=== PATIENT | female | born 1955 | race African-American/Black ===

== ENCOUNTER 2019-01-19 05:54 | Day surgery (SDC) | payer MEDICARE ==
[~2019-01-19] VITALS: Ht 157.6 cm; Wt 67.6 kg
[2019-01-19] VITALS (285 sets, daily range): BP systolic 105–133; BP diastolic 37–75; PULSE 62–80; TEMP 97.5–98.6; O2SAT 88–100
[~2019-01-19 05:54] MED LIST: ASPIRIN E.C. 8181 MG PO; BRILINTA90 MG PO; CATAPRES0.3 MG PO; GLUCOPHAGE500 MG/TAB PO; LIPITOR 80MG80 MG PO; MOTRIN 600600 MG/TAB PO; NITRO-DUR0.4 MG/PAT TD; NITROSTAT0.4 MG/TAB SL; NORVASC 5MG5 MG/TAB PO; PRINZIDE 25 MG-1 TAB PO; SYNTHROID0.112 MG/T PO; TOPROL XL 50MG50 MG PO; TOPROL XL100 MG PO; TYLENOL 500MG500 MG PO; TYLENOL PM EXTR1 TA1 PO
[2019-01-19 07:25] LABS: MEAN CELL VOLUME 90 fl (80.0-100.0); MEAN CORPUSCULAR HGB CONC 30 g/dl (33.0-37.0); MEAN PLATELET VOLUME 10.4 fl (7.4-10.4); PLATELET COUNT 262 K/mm3 (130-400); RED BLOOD COUNT 3.07 M/mm3 (4.10-5.30); REDCELL DISTRIBUTION WIDTH-CV 14.6 % (11.5-14.5)
[2019-01-19] MEDS ORDERED: PLAVIX 75MG TAB75 MG PO (07:32)
[2019-01-19 07:35] LABS: HEMATOCRIT 27.6 % (37.0-47.0); HEMOGLOBIN 8.3 g/dl (12.5-16.0); MEAN CORPUSCULAR HEMOGLOBIN 27 pg (27.0-31.0)
[2019-01-19 07:38] LABS: CALCIUM 9.2 mg/dL (8.4-10.2); CREATININE, serum 1.26 (0.52-1.25); POTASSIUM 4.2 mmol/L (3.4-5.0)
[2019-01-19] MEDS ORDERED: HCTZ 25MG TAB25 MG PO (07:42)
[2019-01-19] MEDS ORDERED: LIPITOR 40MG TA40 MG PO (07:44)
[2019-01-19] MEDS ORDERED: GLUCOPHAGE500 MG/TAB PO (07:45)
[2019-01-19] MEDS ORDERED: SYNTHROID0.112 MG/T PO (07:46)
[2019-01-19] MEDS ORDERED: NORVASC 5MG5 MG/TAB PO (07:51)
[2019-01-19] MEDS ORDERED: LOPRESSOR100 MG PO (07:52)
[2019-01-19 07:54] LABS: PROTHROMBIN TIME 12.1 SECONDS (9.7-12.8)
--- NOTE | 2019-01-19 07:57 | NUR ---
SEE MERGE DOCUMENTATION FOR MEDICATION ADMINISTRATION TIMES AND INTRA/POST PROCEDURE SEDATION ASSESSMENTS. BILATERAL DP PULSES LOCATED WITH DOPPLER, SITES MARKED.
--- NOTE | 2019-01-19 09:45 | NUR ---
Pt arrived in unit from label maker post procedure. After Pt was assisted onto bed navarro after arrival, Pt began to have significant oozing from R femoral cath site. cork slabs sawyer staff now applying manual pressure. Will continue to monitor.
--- NOTE | 2019-01-19 10:00 | NUR ---
Pt still oozing from site. No hematoma present. sleep lab technician staff still applying manual pressure.
--- NOTE | 2019-01-19 10:10 | NUR ---
report received pt to transfer to ICu post procedure.
--- NOTE | 2019-01-19 10:15 | NUR ---
Femstop placed by laborer steel handling staff at this time per direction of Dr. Forman. No hematoma present. Femstop to remain in place for one hour, then reassess bleeding.
--- NOTE | 2019-01-19 10:20 | NUR ---
Pt transferred to ICU rm 2. Bedside handoff with DEBBIE Wolfe. Right groin site with Safeguard at 35 mL. Oozing noted from site. Safeguard removed at this time. Slow tract oozing noted; manual pressure held x 15 min with continued slow oozing noted from site. Dr Forman notified, order received to apply Femostop x1 hr. Orders relayed to DEBBIE Wolfe. Femostop applied at 70 mmHg. BP 131/66. No continued oozing noted. DP pulse checked with doppler post-application of Femostop and found present. Pt A&O, denies pain to groin/flank or sensation changes to distal leg/foot. VS's stable at this time.
--- NOTE | 2019-01-19 10:30 | NUR ---
Femstop dressing still in place with compression at 60 mmHg. No hematoma noted. Purewick external catheter placed at this time. Will continue to monitor.
--- NOTE | 2019-01-19 11:00 | NUR ---
Femstop dressing with compression still in place. No drainage or hematoma noted. Will continue to monitor.
--- NOTE | 2019-01-19 11:20 | NUR ---
Pt continued to experience oozing from cath site after reassessment by photonic laboratory technician. Per direction of Dr. Forman, Pt is to have femstop in place with 70-80 mmHg pressure for 4 hours, then 60 mmHg compression for 4 hours. No hematoma present.
--- NOTE | 2019-01-19 11:20 | NUR ---
This RN and DEBBIE Piña checking pt to remove Femostop. No oozing noted with Femostop in place. Once Femostop removed, slight oozing begins again. Light manual pressure applied. Dr Forman notified. Orders to place Femostop for 6 hours. Pressure of Femostop to be 80 x4 hrs and then may be titrated down for final 2 hrs. These instructions relayed at bedside to [employer]. Femostop repositioned and set to 80 mmHg. No oozing noted at this time. Right DP pulse present by Doppler. BP at this time 108/53.
--- NOTE | 2019-01-19 11:50 | NUR ---
Pt reporting severe numbness and tingling to entire R leg. concrete laborer staff notified immediately and at bedside to assess Pt's cath site. No bleeding or hematoma noted. Femstop pressure decreased to 30 mmHg per direction of Dr[address] Forman. Femstop to remain in place for original length of 6 hours.
--- NOTE | 2019-01-19 17:30 | NUR ---
Femstop removed at this time per order. No drainage or oozing noted. Gauze dressing place. No hematoma. Will continue to monitor.
--- NOTE | 2019-01-19 19:42 | NUR ---
Bedside report given to DEBBIE Hamilton.
--- NOTE | 2019-01-19 23:00 | NUR ---
PT CAME UP FROM ICU VIA BED. PT'S RIGHT GROIN SITE CLEAN, DRY, INTACT, AND NO HEMATOMA. PT DENIES PAIN OR DISCOMFORT AND HAS EXTERNAL CATHETER HOOKED UP TO INTERMITTEN SUCTION. PT AWARE THAT SHE IS ON BED REST. NO NEEDS AT THIS TIME. PT WANTING TO GO TO SLEEP. CALL LIGHT WITHIN REACH.
[2019-01-20 03:43] VITALS: BP 139/62; PULSE 75; TEMP 98
--- NOTE | 2019-01-20 04:19 | NUR ---
PT IN BED WITH HOB AT [address]. PT HAD CALLED ONCE DURING THE NIGHT TO USE THE BEDPAN, BUT NO OTHER NEEDS. PT REQUEST TO TAKE EXTERNAL CATHETER OFF. REMOVED AND PT ADVISED THAT SHE WILL CALL WHEN SHE NEEDS TO USE THE BEDPAN. CALL LIGHT WITHIN REACH.
--- NOTE | 2019-01-20 06:59 | NUR ---
PT'S RIGHT GROIN AREA STILL INTACT NO CHANGE. DRSG OVER SITE CLEAN, DRY, AND INTACT, WITH NO HEMATOMA. PT DENIES PAIN OR DISCOMFORT AND HAS SLEPT WELL. CALL LIGHT WITHIN REACH.
[2019-01-20 07:39] LABS: BASO % 0.3 % (0.0-2.0); EOS # 0.1 (0.0-0.7); EOS % 1.4 % (0-4.0); GRAN # 4.1 (1.4-6.5); GRAN % 66.2 % (42.2-75.2); LYMPH # 1.4 (1.2-3.4); LYMPH % 22.9 % (20.0-51.0); MEAN CELL VOLUME 88 fl (80.0-100.0); MEAN CORPUSCULAR HGB CONC 31 g/dl (33.0-37.0); MEAN PLATELET VOLUME 10.7 fl (7.4-10.4); MONO # 0.6 (0.1-0.6); PLATELET COUNT 286 K/mm3 (130-400); REDCELL DISTRIBUTION WIDTH-CV 14.6 % (11.5-14.5)
[2019-01-20 07:53] LABS: HEMATOCRIT 28.2 % (37.0-47.0); HEMOGLOBIN 8.8 g/dl (12.5-16.0); MEAN CORPUSCULAR HEMOGLOBIN 28 pg (27.0-31.0)
[2019-01-20 07:54] VITALS: BP 143/47; PULSE 73; TEMP 97.9
[2019-01-20 08:04] LABS: CALCIUM 8.9 mg/dL (8.4-10.2); CREATININE, serum 1.04 (0.52-1.25); POTASSIUM 3.8 mmol/L (3.4-5.0)
--- NOTE | 2019-01-20 08:20 | NUR ---
Patient is awake and alert in bed. Stated she would like to sit up as she has been on bedrest and laying flat for an extensive amount of time. Did check cath site and dressing is clean dry and intact. Elevated the head of the bed and then assessed patient, rechecked site and dressing remained clean and dry. Patient stated she was waiting for breakfast and was grateful to be sitting up. States her groin is slightly sore but other than that is experiencing no pain. Personal items and call light is within reach.
[2019-01-20 11:25] VITALS: BP 96/56; PULSE 73; TEMP 98.4
--- NOTE | 2019-01-20 12:07 | NUR ---
First visit from the induction machine operator. No needs right now.
--- NOTE | 2019-01-20 13:53 | NUR ---
Patient discharged home at 1330, patient declined to go over discharge instructions stating she had had a heart cath before and knows what to do and can read the provided information. Did review medications. Patient assisted to private vehicle via wheelchair with personal items with her.
== END 2019-01-20 14:00 | disposition home or self-care (01) ==
LOC: COL.CAR 05:54 → ICU 12:10 → MEDICAL 21:41 → COL.CAR 01-20 14:00
PROVIDERS: Internal Medicine Cardiovascular Disease; Nurse Practitioner
DX: I25.10 Atherosclerotic heart disease of native coronary artery without angina pectoris (principal); I65.23 Occlusion and stenosis of bilateral carotid arteries; I73.9 Peripheral vascular disease, unspecified; I10 Essential (primary) hypertension; Z95.5 Presence of coronary angioplasty implant and graft; I44.7 Left bundle-branch block, unspecified; R01.1 Cardiac murmur, unspecified; Z98.890 Other specified postprocedural states; E07.9 Disorder of thyroid, unspecified; E11.8 Type 2 diabetes mellitus with unspecified complications; Z79.84 Long term (current) use of oral hypoglycemic drugs; Z79.899 Other long term (current) drug therapy; Z79.82 Long term (current) use of aspirin; Z95.828 Presence of other vascular implants and grafts; Z82.49 Family history of ischemic heart disease and other diseases of the circulatory system; Z88.5 Allergy status to narcotic agent; Z91.040 Latex allergy status; Z83.3 Family history of diabetes mellitus; I47.1 Supraventricular tachycardia; I34.0 Nonrheumatic mitral (valve) insufficiency
CPT/HCPCS: OP; C1725; C1760; C1769; C1874; C1887; C1894; C9600; J0153; J0583; J1644; J2250; J3010; Q9967